=== PATIENT | male | born 1970 | race Caucasian/White ===

== ENCOUNTER → 2019-01-13 | Outpatient (REF) | payer OTHER ==
[2019-01-13 11:37] LABS: INFLUENZA A AMPLIFICATION NEGATIVE (NEGATIVE); INFLUENZA B AMPLIFICATION NEGATIVE (NEGATIVE)
== END ==
LOC: M LAB REF 10:52
PROVIDERS: ATTEND Physician Assistant Medical
DX: R68.89 Other general symptoms and signs (principal)

== ENCOUNTER → 2020-02-09 | Outpatient (REF) | payer OTHER | LOC: M SMT 13:13 | PROVIDERS: ATTEND Urology | DX: Z30.09 Encounter for other general counseling and advice on contraception (principal) ==

== ENCOUNTER → 2020-04-16 | Outpatient (CLI) | payer OTHER | LOC: M LABSMTC 08:06 | PROVIDERS: ATTEND Anesthesiology | DX: Z01.818 Encounter for other preprocedural examination (principal); Z11.59 Encounter for screening for other viral diseases | CPT/HCPCS: C9803; U0003 ==

== ENCOUNTER 2020-04-19 10:25 | Day surgery (SDC) | payer OTHER ==
[~2020-04-19] VITALS: Ht 180.3 cm; Wt 107.0 kg
[~2020-04-19 10:25] MED LIST: LIDOCAINE 1% MDV 20ML VIAL SQ PRN; LR 1,000 ML IV ONE
[2020-04-19] MEDS ORDERED: fentaNYL 250 MCG/5 ML INJECTION (J3010) As Ordered ONE (11:03)
[2020-04-19] MEDS ORDERED: PHENYLephrine 500MCG 5ML (100MCG/ML) SYRINGE As Ordered ONE (11:03)
[2020-04-19] MEDS ORDERED: MIDAZOLAM INJ 2MG/2ML VIAL (J2250 PER 1MG) As Ordered ONE (11:03)
[2020-04-19] MEDS ORDERED: ROCURONIUM BROMIDE 50 MG/5 ML VIAL As Ordered ONE (11:04)
[2020-04-19] MEDS ORDERED: KETOROLAC 60MG 2ML VIAL As Ordered ONE (11:04)
[2020-04-19] MEDS ORDERED: SUGAMMADEX SODIUM 500 MG/5 ML VIAL (BRIDION) As Ordered ONE (11:04)
[2020-04-19] MEDS ORDERED: ePHEDrine SULFATE 25 MG/5 ML(5MG/ML) SYRINGE As Ordered ONE ×2 (11:04→13:44)
[2020-04-19] MEDS ORDERED: propofoL 200 MG/20 ML VIAL As Ordered ONE (11:04)
[2020-04-19] MEDS ORDERED: ONDANSETRON 4MG/2ML VIAL As Ordered ONE (11:04)
[2020-04-19] MEDS ORDERED: LIDOCAINE 2% 100MG/5ML SDV (FOR ANES.) As Ordered ONE (11:04)
[2020-04-19] MEDS ORDERED: dexameTHASONE 4 MG/ML 1ML VIAL (J1100 PER 1MG) As Ordered ONE (11:04)
[2020-04-19] MEDS ORDERED: BUPIVACAINE HCL 0.25% 30ML VIAL As Ordered ONE (13:04)
[2020-04-19] MEDS ORDERED: ACETAMINOPHEN 1000MG 100ML IV BTL (OFIRMEV) (J0131 PER 10MG) As Ordered ONE (13:47)
[2020-04-19] MEDS ORDERED: ONDANSETRON 4MG/2ML VIAL IV PRN (15:45)
[2020-04-19] MEDS ORDERED: IBUPROFEN 600MG TAB PO PRN (15:45)
[2020-04-19] MEDS ORDERED: oxyCODONE 5MG TAB PO PRN (15:45)
[2020-04-19] MEDS ORDERED: LR 1,000 ML IV SCH (15:45)
[2020-04-19] MEDS ORDERED: NORCO, ANEXSIA 5/325MG TABLET (HYDROcodone/ACETAMINOPHEN) PO PRN (15:45)
[2020-04-19] MEDS ORDERED: ACETAMINOPHEN TAB 650MG DOSE (2X325MG) PO PRN (15:45)
[2020-04-19] MEDS ORDERED: fentaNYL 100 MCG/2 ML INJECTION (J3010) IV PRN (15:45)
[2020-04-19 18:00] VITALS: BP 146/82
--- NOTE | 2020-04-21 14:30 | RO ---
DATE OF PROCEDURE: 04/19/2020 PREOPERATIVE DIAGNOSIS: Left inguinal hernia. POSTOPERATIVE DIAGNOSIS: Indirect left inguinal hernia. PROCEDURE PERFORMED: Robotic-assisted laparoscopic left inguinal herniorrhaphy with ProGrip mesh. The mesh utilized was reference code, [id number], lot # [id number]. SURGEON: Dr. Manny Morel GOVERNMENT AFFAIRS DIRECTOR: KEREN Nelson's assistance was necessary for managing the da Elvira Xi robot to include insertion of the trocars, change of the instruments, passage of sutures and mesh, and closure of the incisions. ANESTHESIA: General. INDICATIONS FOR PROCEDURE: The patient is a 49-year-old man who had recently noticed a bulge in the left inguinal area. Examination confirmed a reducible left inguinal hernia and he is now for a robotic-assisted laparoscopic left inguinal herniorrhaphy. OPERATIVE PROCEDURE: The patient was brought to the operating room and placed on the table. He was placed under general endotracheal anesthesia. The patient's abdomen was prepped and draped in a sterile fashion. 0.25% Marcaine was infiltrated at the trocar sites as needed. A short supraumbilical transverse incision was made. A Veress needle was inserted and after positive hanging drop test the abdomen was inflated with carbon dioxide gas. An 8 mm robotic port was placed over a 5 mm scope and advanced through the abdominal wall without difficulty. Initial examination showed no evidence of trocar injury. There was a definite hernia defect noted on the left and a small dimple in the peritoneum on the right. Two additional 8 mm ports were placed, one in the right upper quadrant and one in the left upper quadrant. The patient was tilted to a 15 degrees Trendelenburg position. The [employer] Elvira Xi robotic patient cart was brought into position and the endoscope port was docked. The endoscope was inserted and targeting took place in the pelvis. The additional robotic arms were docked. A force bipolar and cauterizing scissor were inserted. I then moved to the control console to proceed with the robotic portion of the procedure. The inspection of the left inguinal hernia revealed this to be an indirect hernia. This was of small to moderate size and did not appear to extend all the way to the scrotum. An arcuate incision was made in the peritoneum beginning at the medial umbilical ligament and extending laterally and then inferiorly toward the anterior-superior iliac spine. The preperitoneal space was opened and a space was created for placement of mesh. The hernia sac was fairly thin walled and was entered in the course of freeing this from the other cord structures. There was also some preperitoneal fat that was adherent to the hernia sac and had been a portion of the herniation. This was all withdrawn into the abdomen. Ultimately, I transected the hernia sac and set this aside with the attached preperitoneal fat. Once the preperitoneal space had been prepared, I closed the opening in the peritoneum with a running suture of #2-0 Vicryl. A 10 x 15 cm rectangular ProGrip mesh was trimmed slightly at the corners and then inserted into the abdomen. This was centered over the hernia defect and then unfolded and pressed gently into the soft tissues of the inguinal floor. This appeared to fit the space very nicely and covered the defect with a broad overlap on all sides. The peritoneal flap was then closed with a running absorbable #2-0 V-Loc suture. As the flap was being closed, the pressure in the abdomen was reduced and the patient was returned to only a 5 degrees Trendelenburg position. The fragment of peritoneum with the preperitoneal fat was withdrawn through one of the robotic ports. Inspection showed excellent coverage of the mesh. The robotic instruments were removed. The patient was returned to a flat position. The abdomen was deflated and the ports were removed. Nicole Ahuja then closed the incisions with buried sutures of #4-0 Vicryl and Steri-Strips. The patient tolerated the procedure well without apparent complication. He was awakened in the operating room, extubated and moved to the recovery room in stable condition. L[place]IS
== END 2020-04-19 18:17 | disposition home or self-care (01) ==
LOC: M SDC 10:25
PROVIDERS: ATTEND Surgery
DX: K40.90 Unilateral inguinal hernia, without obstruction or gangrene, not specified as recurrent (principal)
CPT/HCPCS: 49650; C1781; J0131; J1100; J1885; J2250; J2370; J2405; J3010

== ENCOUNTER → 2020-04-26 | Outpatient (CLI) | payer OTHER ==
--- NOTE | 2020-04-26 15:55 | REP ---
REASON: Left groin pain since left inguinal herniorrhaphy 1 week ago. Multiple ultrasonographic images of the left inguinal region were obtained during rest and Valsalva. There are no abnormalities. There is no cystic or solid masses. There is no bowel-containing inguinal hernia or other abnormality. Electronically Signed by Scottie Zavaleta DO 04/26/2020 04:05 P
== END ==
LOC: M RAD 11:50
PROVIDERS: ATTEND Nurse Practitioner
DX: R10.32 Left lower quadrant pain (principal)

== ENCOUNTER 2021-06-10 20:31 | Emergency (ER) | payer OTHER ==
[~2021-06-10] VITALS: Ht 180.3 cm; Wt 113.5 kg
[2021-06-10] MEDS ORDERED: ONDANSETRON 4MG/2ML VIAL IV ONE (21:15)
[2021-06-10] MEDS ORDERED: LIDOCAINE 1% MDV 20ML VIAL SC ONE (21:15)
[2021-06-10] MEDS ORDERED: MORPHINE 4 MG/ML 1ML VIAL/SYRINGE (J2270) IV ONE (21:15)
[2021-06-10] MEDS ORDERED: ceFAZolin SOD 1 GM in D5W MINI-BAG PLUS 50 ML IV ONE (21:20)
[2021-06-10] MEDS ORDERED: BOOSTRIX/ADACEL VACCINE (DIPHTH/PERTUSS/ACELL/TETANUS) 0.5ML SYR IM ONE (22:35)
[2021-06-10] MEDS ORDERED: NORCO 5/325MG TABLET (BULK FOR ED) PO ONE (22:35)
[2021-06-10] MEDS ORDERED: HYDR-3713 PO (22:39)
[2021-06-10] MEDS ORDERED: CEPH500C PO (22:39)
[2021-06-10 23:49] VITALS: BP 160/92
== END 2021-06-10 23:51 | disposition home or self-care (01) ==
LOC: M ED 20:31
DX: S61.302A Unspecified open wound of right middle finger with damage to nail, initial encounter (principal); W23.0XXA Caught, crushed, jammed, or pinched between moving objects, initial encounter; Y92.62 Dock or shipyard as the place of occurrence of the external cause; Y93.9 Activity, unspecified; Y99.9 Unspecified external cause status
CPT/HCPCS: 12001; 73130; 90471; 90715; 96374; 96375; 99284; J0690; J2270; J2405

== ENCOUNTER → 2021-06-20 | Outpatient (CLI) | payer OTHER ==
[~2021-06-20] MED LIST changes: +CEPH500C PO; +HYDR-3713 PO; -LIDOCAINE 1% MDV 20ML VIAL SQ PRN; -LR 1,000 ML IV ONE
--- NOTE | 2021-06-20 16:54 | REP ---
INDICATION: INJURY. COMPARISON: Comparison is made with CT chest images from September 17, 2005. TECHNIQUE: Two views.. FINDINGS: The left hemidiaphragm is elevated. This is a new finding compared to the 2005 study. No infiltrate or mass is seen. Pleural angles are sharp. Lung krishna are otherwise clear. Cardiomediastinal silhouette is unremarkable. No bony abnormality is appreciated. IMPRESSION: Elevated left hemidiaphragm. Otherwise no acute disease.. <Electronically signed by Dominik Thomas > 06/20/21 [id number]
[2021-06-20 21:56] LABS: HEMATOCRIT 46.8 % (42.0-52.0); HEMOGLOBIN 15.4 g/dl (13.5-17.5); MEAN CORPUSCULAR HEMOGLOBIN 28.7 pg (27.0-33.0); MEAN CORPUSCULAR HGB CONC 32.9 g/dl (32.0-36.5); MEAN CORPUSCULAR VOLUME 87.2 fl (80.0-96.0); PLATELET COUNT, AUTOMATED 308 10^3/uL (150-450); RED BLOOD COUNT 5.37 10^6/uL (4.30-6.10); WHITE BLOOD COUNT 7.7 10^3/uL (4.0-10.0)
[2021-06-20 22:13] LABS: ALBUMIN 4.2 GM/DL (3.2-5.2); ALT/SGPT 65 U/L (12-78); BILIRUBIN,TOTAL 0.4 MG/DL (0.2-1.0); BLOOD UREA NITROGEN 18 MG/DL (7-18); CALCIUM LEVEL 8.6 MG/DL (8.5-10.1); CARBON DIOXIDE LEVEL 27 MEQ/L (21-32); CHLORIDE LEVEL 109 MEQ/L (98-107); CREATININE FOR GFR 1.12 MG/DL (0.70-1.30); GLOMERULAR FILTRATION RATE > 60.0 (>60); GLUCOSE, FASTING 73 MG/DL (70-100); POTASSIUM SERUM 4.3 MEQ/L (3.5-5.1); SODIUM LEVEL 140 MEQ/L (136-145); TOTAL PROTEIN 7.2 GM/DL (6.4-8.2)
== END ==
LOC: M WUC 15:17
PROVIDERS: ATTEND Surgery
DX: S67.192A Crushing injury of right middle finger, initial encounter (principal); X58.XXXA Exposure to other specified factors, initial encounter; Y92.89 Other specified places as the place of occurrence of the external cause; Y93.9 Activity, unspecified; Y99.9 Unspecified external cause status

== ENCOUNTER 2022-07-22 09:37 | Emergency (ER) | payer OTHER ==
[~2022-07-22] VITALS: Ht 180.3 cm; Wt 110.4 kg
[2022-07-22] MEDS ORDERED: NS 1,000 ML IV ONE (10:35)
[2022-07-22] MEDS ORDERED: ISOVUE-370 76% 100ML VIAL As Ordered ONE (10:47)
[2022-07-22 10:57] LABS: APPEARANCE, URINE MANUAL CLEAR (CLEAR); COLOR, URINE MANUAL YELLOW (YELLOW)
[2022-07-22 10:58] LABS: BILIRUBIN, URINE MANUAL NEGATIVE (NEGATIVE); BLOOD URINE MANUAL NEGATIVE (NEGATIVE); GLUCOSE, URINE (UA) MANUAL NEGATIVE (NEGATIVE); KETONE, URINE MANUAL NEGATIVE (NEGATIVE); LEUKOCYTE ESTERASE, URINE MAN NEGATIVE (NEGATIVE); NITRITE, URINE MANUAL NEGATIVE (NEGATIVE); PROTEIN, URINE MANUAL NEGATIVE (NEGATIVE); UROBILINOGEN, URINE MANUAL NORMAL (NORMAL)
[2022-07-22 11:01] LABS: BASO % 0.3 % (0.0-1.0); EOS # 0.1 10^3/uL (0.0-0.5); EOS % 0.5 % (0.0-3.0); HEMOGLOBIN 14.6 g/dl (13.5-17.5); LYMPH # 1.7 10^3/uL (1.5-5.0); LYMPH % 13.5 % (24.0-44.0); MEAN CORPUSCULAR HEMOGLOBIN 29.2 pg (27.0-33.0); MONO # 1.3 10^3/uL (0.0-0.8); MONO % 9.7 % (2.0-8.0); NEUTROPHILS # 9.8 10^3/uL (1.5-8.5); NEUTROPHILS % 75.8 % (36.0-66.0); PLATELET COUNT, AUTOMATED 228 10^3/uL (150-450); WHITE BLOOD COUNT 12.9 10^3/uL (4.0-10.0)
[2022-07-22] MEDS ORDERED: CIPROFLOXACIN 400 MG in IV 1 EA IV ONE (11:35)
[2022-07-22] MEDS ORDERED: metroNIDAZOLE (FLAGYL) 500MG TABLET PO ONE (11:35)
[2022-07-22] MEDS ORDERED: METR-265 PO (12:15)
[2022-07-22] MEDS ORDERED: CIPR-249 PO (12:15)
[2022-07-22 12:59] VITALS: BP 169/88
== END 2022-07-22 13:00 | disposition home or self-care (01) ==
LOC: M ED 09:37
DX: K57.32 Diverticulitis of large intestine without perforation or abscess without bleeding (principal); Z79.899 Other long term (current) drug therapy
CPT/HCPCS: 74177; 80047; 81002; 85025; 96361; 96365; 99284; J0744; Q9967

== ENCOUNTER 2022-09-26 01:02 | Emergency (ER) | payer OTHER ==
[~2022-09-26] VITALS: Ht 180.3 cm; Wt 112.7 kg
[~2022-09-26 01:02] MED LIST changes: -LOSA50TA28 PO
[2022-09-26 04:51] LABS: HEMATOCRIT 44.3 % (42.0-52.0); HEMOGLOBIN 15.1 g/dl (13.5-17.5); MEAN CORPUSCULAR HEMOGLOBIN 29.1 pg (27.0-33.0); MEAN CORPUSCULAR HGB CONC 34.1 g/dl (32.0-36.5); MEAN CORPUSCULAR VOLUME 85.4 fl (80.0-96.0); PLATELET COUNT, AUTOMATED 269 10^3/uL (150-450); RED BLOOD COUNT 5.19 10^6/uL (4.30-6.10); WHITE BLOOD COUNT 6.9 10^3/uL (4.0-10.0)
[2022-09-26] MEDS ORDERED: LOSARTAN 50MG TABLET PO ONE (05:35)
[2022-09-26 05:42] LABS: ALBUMIN 3.9 GM/DL (3.2-5.2); ALT/SGPT 37 U/L (12-78); BILIRUBIN,DIRECT 0.2 MG/DL (0.0-0.2); BILIRUBIN,TOTAL 0.5 MG/DL (0.2-1.0); BLOOD UREA NITROGEN 19 MG/DL (7-18); CALCIUM LEVEL 8.6 MG/DL (8.5-10.1); CARBON DIOXIDE LEVEL 24 MEQ/L (21-32); CHLORIDE LEVEL 107 MEQ/L (98-107); GLOMERULAR FILTRATION RATE > 60.0 (>60); GLUCOSE, FASTING 104 MG/DL (70-100); POTASSIUM SERUM 4.4 MEQ/L (3.5-5.1); SODIUM LEVEL 139 MEQ/L (136-145); THYROID STIMULATING HORMONE 0.519 uIU/ML (0.358-3.740); TOTAL PROTEIN 7.2 GM/DL (6.4-8.2)
[2022-09-26 05:44] VITALS: BP 141/96
[2022-09-26] MEDS ORDERED: LOSA50TA28 PO (06:14)
[2022-09-26 06:16] VITALS: BP 165/100
== END 2022-09-26 06:39 | disposition home or self-care (01) ==
LOC: M ED 01:02
DX: I10 Essential (primary) hypertension (principal); R00.0 Tachycardia, unspecified; F10.10 Alcohol abuse, uncomplicated; Z79.811 Long term (current) use of aromatase inhibitors

== ENCOUNTER → 2022-09-26 | Outpatient (CLI) | payer OTHER ==
[~2022-09-26] MED LIST changes: +CIPR-249 PO; +LOSA50TA28 PO; +METR-265 PO
== END ==
LOC: M LAB 16:33
PROVIDERS: ATTEND Physician Assistant
DX: R55 Syncope and collapse (principal)

== ENCOUNTER → 2022-10-28 | Outpatient (CLI) | payer OTHER ==
[~2022-10-28] MED LIST changes: +CARV6.25 PO; +LOSA50TA28 PO
== END ==
LOC: M LABSMTC 11:02
PROVIDERS: ATTEND Anesthesiology
DX: Z20.828 Contact with and (suspected) exposure to other viral communicable diseases (principal); Z11.59 Encounter for screening for other viral diseases

== ENCOUNTER 2022-10-30 10:04 | Day surgery (SDC) | payer OTHER ==
[~2022-10-30] VITALS: Ht 180.3 cm; Wt 108.4 kg
[~2022-10-30 10:04] MED LIST changes: +NS 1,000 ML IV ONE
[2022-10-30] MEDS ORDERED: LIDOCAINE 2% 100MG/5ML SDV (FOR ANES.) As Ordered ONE (12:10)
[2022-10-30] MEDS ORDERED: propofoL 200 MG/20 ML VIAL As Ordered ONE ×2 (12:10→12:26)
[2022-10-30] MEDS ORDERED: MIDAZOLAM INJ 2MG/2ML VIAL (J2250 PER 1MG) As Ordered ONE (12:10)
[2022-10-30 13:05] VITALS: BP 140/94
== END 2022-10-30 13:14 | disposition home or self-care (01) ==
LOC: M OPP 10:04
PROVIDERS: ATTEND Internal Medicine Gastroenterology
DX: Z12.11 Encounter for screening for malignant neoplasm of colon (principal); D12.2 Benign neoplasm of ascending colon; K57.30 Diverticulosis of large intestine without perforation or abscess without bleeding; I10 Essential (primary) hypertension; Z79.899 Other long term (current) drug therapy; Z87.891 Personal history of nicotine dependence
CPT/HCPCS: 45385; 88305; J2250

== ENCOUNTER 2023-08-15 17:37 | Emergency (ER) | payer OTHER ==
[~2023-08-15] VITALS: Ht 180.3 cm; Wt 114.0 kg
[~2023-08-15 17:37] MED LIST changes: -NS 1,000 ML IV ONE
[2023-08-15 19:16] LABS: BASO % 0.6 % (0.0-1.0); EOS # 0.2 10^3/uL (0.0-0.5); EOS % 2.3 % (0.0-3.0); HEMATOCRIT 44.7 % (42.0-52.0); HEMOGLOBIN 15.1 g/dl (13.5-17.5); LYMPH % 28.6 % (24.0-44.0); MEAN CORPUSCULAR HEMOGLOBIN 29.1 pg (27.0-33.0); MEAN CORPUSCULAR HGB CONC 33.8 g/dl (32.0-36.5); MEAN CORPUSCULAR VOLUME 86.1 fl (80.0-96.0); MONO # 0.8 10^3/uL (0.0-0.8); MONO % 11.2 % (2.0-8.0); PLATELET COUNT, AUTOMATED 265 10^3/uL (150-450); RED BLOOD COUNT 5.19 10^6/uL (4.30-6.10)
[2023-08-15 19:40] LABS: FREE T4 1.16 NG/DL (0.89-1.76)
[2023-08-15 19:49] LABS: CK-MB VALUE MASS 1.2 NG/ML (<3.6)
[2023-08-15 19:51] LABS: BLOOD UREA NITROGEN 18 MG/DL (9-23); CALCIUM LEVEL 8.7 MG/DL (8.5-10.1); CARBON DIOXIDE LEVEL 25 MMOL/L (20-31); CHLORIDE LEVEL 106 MMOL/L (98-107); CPK CREATINE PHOSPHOKINASE 149 U/L (46-171); CREATININE FOR GFR 0.89 MG/DL (0.70-1.30); GLOMERULAR FILTRATION RATE > 60.0 (>56); GLUCOSE, FASTING 77 MG/DL (60-100); MAGNESIUM LEVEL 1.9 MG/DL (1.8-2.4); POTASSIUM SERUM 4.3 MMOL/L (3.5-5.1); SODIUM LEVEL 140 MMOL/L (136-145)
[2023-08-15] MEDS ORDERED: CARVedilol 6.25 MG TAB PO ONE ×2 (20:00→21:55)
[2023-08-15 20:48] LABS: RSV AMPLIFICATION NEGATIVE (NEGATIVE)
[2023-08-15] MEDS ORDERED: CARV12.5 PO (21:40)
[2023-08-15 21:49] VITALS: BP 154/96
[2023-08-15 21:50] VITALS: TEMP 97.9; O2SAT 98
[2023-08-15 21:55] VITALS: BP 154/96
== END 2023-08-15 21:59 | disposition home or self-care (01) ==
LOC: M ED 17:37
DX: R00.2 Palpitations (principal); I10 Essential (primary) hypertension; F10.10 Alcohol abuse, uncomplicated; Z79.899 Other long term (current) drug therapy

== ENCOUNTER → 2023-10-02 | Outpatient (CLI) | payer OTHER ==
[~2023-10-02] MED LIST changes: +CARV12.5 PO
[2023-10-02 10:33] LABS: HEMATOCRIT 45.8 % (42.0-52.0); HEMOGLOBIN 15.6 g/dl (13.5-17.5); MEAN CORPUSCULAR HEMOGLOBIN 29.5 pg (27.0-33.0); MEAN CORPUSCULAR HGB CONC 34.1 g/dl (32.0-36.5); MEAN CORPUSCULAR VOLUME 86.7 fl (80.0-96.0); PLATELET COUNT, AUTOMATED 308 10^3/uL (150-450); RED BLOOD COUNT 5.28 10^6/uL (4.30-6.10); WHITE BLOOD COUNT 5.6 10^3/uL (4.0-10.0)
[2023-10-02 10:55] LABS: HEMOGLOBIN A1c 4.6 % (4.0-6.0)
[2023-10-02 11:02] LABS: CREATININE, URINE 178.2 MG/DL
[2023-10-02 11:03] LABS: C REACTIVE PROTEIN QUANTITATIV < 0.40 MG/DL (<1.0)
[2023-10-02 11:04] LABS: ALBUMIN 3.9 G/DL (3.2-5.2); ALKALINE PHOSPHATASE 86 U/L (46-116); ALT/SGPT 42 U/L (7.0-40); AST/SGOT 21 U/L (<34); BILIRUBIN,TOTAL 0.5 MG/DL (0.3-1.2); BLOOD UREA NITROGEN 14 MG/DL (9-23); CALCIUM LEVEL 8.9 MG/DL (8.5-10.1); CARBON DIOXIDE LEVEL 26 MMOL/L (20-31); CHLORIDE LEVEL 106 MMOL/L (98-107); CHOLESTEROL LEVEL 148 MG/DL (<200); CHOLESTEROL RISK RATIO 3.18 (<5); CREATININE FOR GFR 1.03 MG/DL (0.70-1.30); GLOMERULAR FILTRATION RATE > 60.0 (>56); GLUCOSE, FASTING 88 MG/DL (60-100); HDL CHOLESTEROL 46.5 MG/DL (>40); LDL CHOLESTEROL 87.5 MG/DL (<100); MAU/CREAT RATIO 2.2 MCG/MG (0.0-30.0); NON-HDL-C 101.5 MG/DL; POTASSIUM SERUM 4.6 MMOL/L (3.5-5.1); SODIUM LEVEL 140 MMOL/L (136-145); TOTAL PROTEIN 6.9 G/DL (5.7-8.2); TRIGLYCERIDES LEVEL 70 MG/DL (<150)
[2023-10-02 11:05] LABS: FREE T4 1.17 NG/DL (0.89-1.76); THYROID STIMULATING HORMONE 0.812 uIU/ML (0.55-4.78)
[2023-10-02 11:06] LABS: TOTAL 25(OH) VITAMIN D 30.8 NG/ML (20.0-100.0); VITAMIN B12 LEVEL 570 PG/ML (211-911)
== END ==
LOC: M PLALAB 07:14
PROVIDERS: ATTEND Internal Medicine Hematology
DX: I10 Essential (primary) hypertension (principal)

== ENCOUNTER → 2024-01-20 | Outpatient (CLI) | payer OTHER ==
[2024-01-20 17:44] LABS: HEMOGLOBIN 15.8 g/dl (13.5-17.5); MEAN CORPUSCULAR HEMOGLOBIN 29.3 pg (27.0-33.0); MEAN CORPUSCULAR HGB CONC 33.6 g/dl (32.0-36.5); PLATELET COUNT, AUTOMATED 253 10^3/uL (150-450); WHITE BLOOD COUNT 10.9 10^3/uL (4.0-10.0)
[2024-01-20 18:07] LABS: ALKALINE PHOSPHATASE 92 U/L (46-116); ALT/SGPT 32 U/L (7.0-40); AST/SGOT 32 U/L (<34); BLOOD UREA NITROGEN 15 MG/DL (9-23); CARBON DIOXIDE LEVEL 29 MMOL/L (20-31); CHLORIDE LEVEL 103 MMOL/L (98-107); CREATININE FOR GFR 1.05 MG/DL (0.70-1.30); GLOMERULAR FILTRATION RATE > 60.0 (>56); GLUCOSE, FASTING 72 MG/DL (60-100); POTASSIUM SERUM 4.8 MMOL/L (3.5-5.1); SODIUM LEVEL 136 MMOL/L (136-145)
== END ==
LOC: M PLALAB 15:26
PROVIDERS: ATTEND Nurse Practitioner Adult Health
DX: K57.92 Diverticulitis of intestine, part unspecified, without perforation or abscess without bleeding (principal)

== ENCOUNTER 2025-06-03 20:40 | Emergency (ER) | payer OTHER ==
[2025-06-03] MEDS ORDERED: HYDR-3490 (20:53)
[2025-06-03] MEDS ORDERED: CARV25TA (20:53)
[2025-06-03 22:17] LABS: BASO # 0.1 10^3/uL (0.0-0.2); BASO % 0.9 % (0.0-1.0); EOS # 0.2 10^3/uL (0.0-0.5); EOS % 1.9 % (0.0-3.0); LYMPH # 2.5 10^3/uL (1.5-5.0); LYMPH % 31.8 % (24.0-44.0); MONO # 0.8 10^3/uL (0.0-0.8); MONO % 9.9 % (2.0-8.0); NEUTROPHILS # 4.3 10^3/uL (1.5-8.5); NEUTROPHILS % 55.2 % (36.0-66.0); PLATELET COUNT, AUTOMATED 239 10^3/uL (150-450)
[2025-06-03 22:39] LABS: CALCIUM LEVEL 8.4 MG/DL (8.5-10.1); CARBON DIOXIDE LEVEL 28.0 MMOL/L (20-31); CHLORIDE LEVEL 101.0 MMOL/L (98-107); CK-MB VALUE MASS 2.0 NG/ML (<3.6); CPK CREATINE PHOSPHOKINASE 144.0 U/L (46-171); CREATININE FOR GFR 1.02 MG/DL (0.70-1.30); GLOMERULAR FILTRATION RATE 88.4 (>56); MAGNESIUM LEVEL 1.9 MG/DL (1.8-2.4); MB/CK RELATIVE INDEX 1.38 (< OR =4); POTASSIUM SERUM 3.4 MMOL/L (3.5-5.1); SODIUM LEVEL 140.0 MMOL/L (136-145)
[2025-06-04] VITALS: BP 129/86; TEMP 97.3; O2SAT 97
== END 2025-06-04 00:23 | disposition home or self-care (01) ==
LOC: M ED 20:40
DX: R07.9 Chest pain, unspecified (principal); I10 Essential (primary) hypertension; K40.90 Unilateral inguinal hernia, without obstruction or gangrene, not specified as recurrent; Z79.899 Other long term (current) drug therapy